=== PATIENT | female | born 1995 | race African-American/Black ===

== ENCOUNTER 2017-08-28 22:27 | Emergency (ER) | payer BC ==
[~2017-08-28] VITALS: Ht 167.6 cm; Wt 85.0 kg
[2017-08-28 22:29] VITALS: BP 124/78; PULSE 66; RESP 16; TEMP 99.3; O2SAT 97
[2017-08-28] MEDS ORDERED: AMOX500T PO (23:43)
[2017-08-28] MEDS ORDERED: PRED20 PO (23:43)
[2017-08-28] MEDS ORDERED: AMOXICILLIN (TRIHYDRATE) 500 MG CAP PO ONE (23:45)
--- NOTE | 2017-08-28 23:47 | PD ---
HPI Chief Complaint: ENT Complaint Time Seen by Provider: 23:30 Travel History International Travel<30 days: No Contact w/Intl Traveler<30days: No Traveled to known affect area: No History of Present Illness HPI 22-year-old black female presents emergency Department with complaints of sore throat since . She states that she has had strep throat in the past and this is similar. She has had a fever of 101 at home. No ear pain. No cough or congestion. No nausea vomiting. No abdominal pain or diarrhea. No dysuria or frequency. Symptoms are moderate. Worse with swallowing. No alleviating factors. PFSH Past Medical History Narrative Medical Strep throat Immunizations Current: Yes Tetanus Vaccination: Unknown Influenza Vaccination: No ?: Not LMP: 08/11/17 Past Surgical History Surgical History: No Previous Surgery Social History Alcohol Use: No Tobacco Use: No Substance Use: No Allergies-Medications (Allergen,Severity, Reaction): Coded Allergies: No Known Allergies (Verified Allergy, Unknown, 08/28/17) Reported Meds & Prescriptions Reported Meds & Active Scripts Active Prednisone 20 Mg Tab 20 Mg PO BID 3 Days Amoxicillin 500 Mg Tab 500 Mg PO TID 10 Days Review of Systems Except as stated in HPI: all other systems reviewed are Neg Physical Exam Narrative GENERAL: Well-developed, well-nourished in no acute distress. Nontoxic appearing. HEAD: Normocephalic, atraumatic. EYES: Pupils equal round and reactive. Extraocular motions intact. No scleral icterus. No injection or drainage. ENT: TMs clear without erythema. The external auditory canals clear. Nose: clear . Posterior pharynx is erythematous and moist. Positive tonsillar edema but no white exudate. Uvula midline. Airway patent. NECK: Trachea midline.Supple, nontender, moves head freely. No central bony tenderness or spasm. CARDIOVASCULAR: Regular rate and rhythm without murmurs, gallops, or rubs. RESPIRATORY: Clear to auscultation. Breath sounds equal bilaterally. No wheezes , rales, or rhonchi. GASTROINTESTINAL: Abdomen soft, non-tender, nondistended. No hepato-splenomegaly , or palpable masses. No guarding. EXTREMITIES: No clubbing, cyanosis, or edema. No joint tenderness, effusion, or edema noted. BACK: Nontender without deformity or crepitance. No flank tenderness. Data Data Last Documented VS Vital Signs Date Time Temp Pulse Resp B/P (MAP) Pulse Ox O2 Delivery O2 Flow Rate FiO2 08/28/17 22:29 99.3 66 16 124/78 (93) 97 Orders Orders Amoxicillin (Trimox) (08/28/17 23:45) MDM Medical Decision Making Medical Screen Exam Complete: Yes Emergency Medical Condition: Yes Medical Record Reviewed: Yes Differential Diagnosis MDM: High Differential diagnoses: Strep throat, viral pharyngitis, mono, peritonsillar abscess, retropharyngeal abscess, Guy's angina Narrative Course Patient's given amoxicillin 500 mg by mouth. This is acute pharyngitis Diagnosis Primary Impression: Acute pharyngitis Qualified Codes: J02.9 - Acute pharyngitis, unspecified Patient Instructions: General Instructions Additional Instructions: Rest. Force fluids. Saltwater gargles. Tylenol and Advil. Chloraseptic Whitman Cepastat lozenge. Amoxicillin and prednisone. Follow-up with a primary care doctor in one week. Return to the ER if any problems. Med/Other Pt SpecificInfo: Prescription(s) given Scripts Prednisone (Prednisone) 20 Mg Tab 20 MG PO BID for 3 Days, #6 TAB 0 Refills Prov: Xenia Guadalupe MD 08/28/17 Amoxicillin (Amoxicillin) 500 Mg Tab 500 MG PO TID for Infection for 10 Days, TAB 0 Refills Prov: Xenia Guadalupe MD 08/28/17 Disposition: 01 DISCHARGE HOME Condition: Stable Franky Walsh Aug 28, 2017 23:47
== END 2017-08-29 00:11 | disposition home or self-care (01) ==
LOC: NEPK 22:27
DX: J02.9 Acute pharyngitis, unspecified (principal)
CPT/HCPCS: 99284